=== PATIENT | female | born 1930 | race Caucasian/White ===

== ENCOUNTER 2017-12-12 14:12 | Inpatient (IN) | payer MEDICARE, OTHER ==
[2017-12-12 15:13] LABS: #Lymphocytes 0.4 thou/uL (1.20-3.40); #Monocytes 0.8 thou/uL (0.11-0.59); #Neutrophils 8.7 thou/uL (1.40-6.50); %Basophils 0.3 % (0.0-1.0); %Eosinophils 0.3 % (0.0-10.0); %Lymphocytes 3.6 % (21.0-51.0); %Monocytes 7.6 % (0.0-10.0); %Neutrophils 88.2 % (42.0-75.0); Hemoglobin 12.8 g/dL (12.0-16.0); Mean Corpuscular HGB CONC 31.6 g/dL (32.0-36.0); Mean Corpuscular Hemoglobin 28.9 pg (27.0-31.0); Mean Corpuscular Volume 91.5 fl (81.0-99.0); Mean Platelet Volume 7.1 fL (7.4-10.4); Platelet Count 248 thou/uL (130-400); RBC Distribution Width 12.7 % (11.5-14.5); Red Blood Cell (RBC) Count 4.43 mill/uL (4.20-5.40); White Blood Cell (WBC) Count 9.9 thou/uL (4.8-10.8)
[2017-12-12 15:33] LABS: ALT (SGPT) 85 U/L (8-55); AST (SGOT) 84 U/L (5-34); Albumin 3.8 g/dL (3.4-4.8); Alkaline Phosphatase 606 U/L (40-150); Bilirubin, Direct 6.8 mg/dL (0.1-0.3); Bilirubin, Total 8.6 mg/dL (0.2-1.2)
[2017-12-12 15:35] LABS: ALT (SGPT) 86 U/L (8-55); AST (SGOT) 85 U/L (5-34); Albumin 3.8 g/dL (3.4-4.8); Alkaline Phosphatase 610 U/L (40-150); Anion Gap 13 mmol/L (10-20); BUN (Urea Nitrogen) 17 mg/dL (9.8-20.1); Bilirubin, Total 8.7 mg/dL (0.2-1.2); Calc. Creatinine Clearance 0 mL/min (70-130); Calcium 9.5 mg/dL (7.8-10.44); Carbon Dioxide 23 mmol/L (23-31); Chloride 95 mmol/L (98-107); Estimated GFR-MDRD 69; Globulin 3.2 g/dL (2.4-3.5); Glucose 126 mg/dL (83-110); Potassium 4.3 mmol/L (3.5-5.1); Sodium 127 mmol/L (136-145)
[2017-12-12 15:48] LABS: Lipase 1192 U/L (8-78)
[2017-12-12] MEDS ORDERED: Acetaminophen 500 MG TAB ONE (16:14)
--- NOTE | 2017-12-12 17:40 | ULT ---
RIGHT UPPER QUADRANT ULTRASOUND: History: Right upper quadrant pain. Comparison: None. FINDINGS: The visualized portion of the pancreas is unremarkable. There appears to be intrahepatic biliary dila tation as well as extrahepatic biliary dilatation. The liver measures 14.9 cm in length. Portal vein is patent with antegrade flow. Common bile duct measures 1.3 cm. There is cholelithiasis. There is also some pericholecystic fluid. Gallbladder wall thickness is up to 4 mm. There is a right sided renal calculi. The right kidney measures 9.6 x 4.9 x 4.9 cm. IMPRESSION: 1. Intrahepatic and extrahepatic biliary dilatation of the common bile duct measuring up to 1.3 cm. F urther characterization with ERCP recommended. MRCP may also be beneficial if patient is not a candid ate for ERCP. 2. Abnormally thickened gallbladder wall and some pericholecystic fluid can be seen with cholecystiti s or due to increased back pressure from a distal obstructing process either within the common bile d uct or pancreatic head. 3. Cholelithiasis and gallbladder sludge. 4. Right sided renal calculi, nonobstructed. POS: BELLA
[2017-12-12] MEDS ORDERED: Piperacillin/Tazobactam 4.5 GM in Sodium Chloride 0.9% 100 ML IVPB SCH (18:15)
[2017-12-12 18:39] LABS: Bilirubin Large (Negative); Blood, Urine Negative (Negative); Clarity CLEAR (Clear); Glucose, Urine (Dipstick) Negative (Negative); Leukocyte Small (Negative); Nitrite Negative (Negative); Protein, Urine (Dipstick) Negative (Neg-Trace); Specific Gravity, Urine 1.016 (1.002-1.036)
[2017-12-12 18:40] LABS: Bacteria/HPF None Seen HPF (None Seen); Hyaline Casts/LPF 4-6 HYALINE CAST LPF (0-3 Hyaline); Pathc Cast-AUWi Flag 1.21 (0-2.49); Squamous Epithelial 0-3 HPF (0-3)
[2017-12-12] MEDS ORDERED: Calcium Carbonate 500 MG ChewTAB PO PRN (21:34)
[2017-12-12] MEDS ORDERED: Mag-Al 1200 mg/1200 mg/30 ML UDCUP PO PRN (21:34)
[2017-12-12] MEDS ORDERED: Ondansetron HCl/PF 4 MG/2 ML Vial IVP PRN (21:34)
[2017-12-12] MEDS ORDERED: Promethazine HCl 25 MG/ML VIAL IM PRN (21:34)
[2017-12-12] MEDS ORDERED: hydrALAZINE 20 MG/ML VIAL SLOW IVP PRN (21:34)
[2017-12-12] MEDS ORDERED: Dextrose 50% Abboject 50 ML SYRINGE SLOW IVP PRN (21:34)
[2017-12-12] MEDS ORDERED: Dextrose 5% in Water 1,000 ML IV PRN (21:34)
[2017-12-12 21:42] VITALS: BMI 25.5
[2017-12-12] MEDS ORDERED: HumaLOG 300 UNITS/3 ML VIAL SC PRN (21:53)
--- NOTE | 2017-12-12 21:58 | CON ---
CHIEF COMPLAINT: Jaundice. HISTORY OF PRESENT ILLNESS: This is an 87-year-old female who has real no complaints of pain, nausea , vomiting, and was noticed to be quite jaundiced today at the [facility] and sent over to the [facility] as a diagnosis of painless jaundice. The patient states that she has not felt real well today on further questioning, may be some abdominal discomfort after she ate, has not had this much of an appetite today. She denies known previous history of jaundice, gallstones or pancreatitis, found to have a high bilirubin and evidence of gallstones and dilated common bile duct. PAST MEDICAL HISTORY: Includes hypertension. PAST SURGICAL HISTORY: Hip fracture. MEDICINES TAKEN DAILY: Hypertensive medication. ALLERGIES: No known drug allergies. SOCIAL HISTORY: No smoking, alcohol, or other drugs. REVIEW OF SYSTEMS: Ten system review of systems otherwise negative unless described above. PHYSICAL EXAMINATION: VITAL SIGNS: Her blood pressure is 125/84, her pulse is 75, respirations are 12. She is afebrile an d had 100.4 in the emergency room. HEENT: Sclerae are icteric. Oropharynx clear. NECK: No lymphadenopathy. CHEST: Clear. HEART: Regular rate and rhythm. ABDOMEN: Soft, mildly tender on deep palpation in the epigastric area. No guarding or rebound. EXTREMITIES: No ischemia or edema to extremities. LABORATORY: White cell count is 9, hemoglobin 12, platelet count is 248, no bands. Sodium is 127, p otassium 4.3, creatinine 0.79, bilirubin 8.6. Lipase was 1192. Ultrasound gallstones, dilated commo n bile duct. ASSESSMENT: Likely gallstone pancreatitis. She was told that because this is painless jaundice. Sh alisa could have a tumor in her pancreas, I think this is less likely. PLAN: Admit to hospital. Cover with antibiotics, IV fluid resuscitation. Discussed with Dr. Oh as well. He will see her tomorrow. Depending on what her bilirubin does, will decide the next step in her treatment. She has no signs of cholangitis in the emergency room.
[2017-12-12] MEDS: Sodium Chloride 0.9% 1,000 ML IV SCH (22:22)
[2017-12-13] MEDS: Piperacillin/Tazobactam 3.375 GM in Sodium Chloride 0.9% 100 ML IVPB SCH ×4 (03:17→21:46)
[2017-12-13 04:47] LABS: #Eosinphils 0.1 thou/uL (0.0-0.7); #Lymphocytes 0.7 thou/uL (1.20-3.40); #Monocytes 0.8 thou/uL (0.11-0.59); #Neutrophils 5.9 thou/uL (1.40-6.50); %Basophils 0.2 % (0.0-1.0); %Eosinophils 0.7 % (0.0-10.0); %Lymphocytes 9.5 % (21.0-51.0); %Monocytes 10.3 % (0.0-10.0); %Neutrophils 79.3 % (42.0-75.0); Hemoglobin 10.9 g/dL (12.0-16.0); Mean Corpuscular HGB CONC 31.5 g/dL (32.0-36.0); Mean Corpuscular Hemoglobin 28.7 pg (27.0-31.0); Mean Corpuscular Volume 91.2 fl (81.0-99.0); Mean Platelet Volume 7.4 fL (7.4-10.4); Platelet Count 220 thou/uL (130-400); RBC Distribution Width 12.7 % (11.5-14.5); Red Blood Cell (RBC) Count 3.81 mill/uL (4.20-5.40); White Blood Cell (WBC) Count 7.4 thou/uL (4.8-10.8)
--- NOTE | 2017-12-13 04:48 | HP ---
PRIMARY CARE PHYSICIAN: Dr. Tor Argueta in [place]. PRESENTING COMPLAINT: Drug induced jaundice. HISTORY OF PRESENT ILLNESS: An 87-year-old female with a past medical history of hypertension and dementia who presented to the emergency room with jaundice which she noticed on Tuesday and yesterday she developed poor appetite and muscle aches. She also had a low grade fever with temperature of 100 degrees Fahrenheit, T-max. There was no history of chills, nausea, vomiting or diarrhea. She has not had any pale stools, but reports that her urine has been "very yellow". She also reports abdominal discomfort, but reports no pain. She has no chest pain, shortness of breath, palpitation, PND, orthopnea, lower extremity edema. She decided to come to the hospital due to worsening jaundice. PAST MEDICAL HISTORY: Hypertension, dementia. PAST SURGICAL HISTORY: None. FAMILY HISTORY: Reviewed, noncontributory. SOCIAL HISTORY: Does not drink alcohol, smoke cigarettes or use illicit drugs. ALLERGIES: None. REVIEW OF SYSTEMS: CONSTITUIONAL: Denies chills, fever. HEENT: Negative. CARDIOVASCULAR: Negative. RESPIRATORY: Negative. GI: Denies abdominal pain, nausea, vomiting or diarrhea. MUSCULOSKELETAL: Negative. SKIN: Positive for jaundice. NEUROLOGIC: Negative. PSCHIATIRIC: Negative. PHYSICAL EXAMINATION: VITAL SIGNS: Shows hemodynamically stable on arrival. CONSTITUTIONAL: Not in acute distress, lying comfortably in bed. HEENT: Normocephalic, atraumatic. Not pale icteric. Moist mucosa. RESPIRATORY: Vesicular breath sounds bilaterally. No wheezes or rales. CARDIOVASCULAR: S1 and S2 only. No murmurs, rubs or gallops. MUSCULOSKELETAL: No skeletal abnormalities. SKIN: Marked jaundice. PSYCHIATRIC: Normal mood and affect. RADIOLOGY: Abdominal ultrasound; cholecystitis. There are intra and extrahepatic dilatation common bile duct and possible thickened gallbladder wall with possible pericholecystic fluid. LABORATORY: Significant labs include bilirubin of 8.7, AST/ALT of 85 and 86 with alkaline phosphatase of 610, lipase was over 1000. Urine showed urobilinogen. ASSESSMENT AND PLAN: 1. Cholecystitis/Gall Stone Pancreatitis. The patient presents with marked jaundice. Labs showed obstructive pattern and abdominal ultrasound confirms cholecystitis with possible intra and extrahepatic dilatation. Surgery has been consulted and recommend consulting GI for ERCP. The patient will be made n.p.o., hydrated and placed on prophylactic antibiotic coverage. We will follow up blood cultures. 2. Hypertension. Blood pressure is currently at goal. At home she takes amlodipine 10 mg as well as losartan/hydrochlorothiazide. We will gradually reintroduce her home medications. 3. Hypothyroidism. We will obtain TSH and restart of levothyroxine once patient can take orally. 4. Dementia. She is alert and oriented x2. We will ensure delirium precautions. MTDD
[2017-12-13 05:11] LABS: ALT (SGPT) 60 U/L (8-55); AST (SGOT) 65 U/L (5-34); Albumin 3.1 g/dL (3.4-4.8); Alkaline Phosphatase 467 U/L (40-150); Anion Gap 12 mmol/L (10-20); BUN (Urea Nitrogen) 11 mg/dL (9.8-20.1); Bilirubin, Total 8.4 mg/dL (0.2-1.2); Calc. Creatinine Clearance 68 mL/min (70-130); Calcium 8.7 mg/dL (7.8-10.44); Carbon Dioxide 24 mmol/L (23-31); Chloride 102 mmol/L (98-107); Estimated GFR-MDRD 82; Globulin 2.5 g/dL (2.4-3.5); Glucose 101 mg/dL (83-110); Lipase 722 U/L (8-78); Potassium 3.6 mmol/L (3.5-5.1); Protein, Total 5.6 g/dL (6.0-8.3); Sodium 134 mmol/L (136-145)
[2017-12-13] MEDS: Sodium Chloride 0.9% 1,000 ML IV SCH ×2 (05:38→12:47)
[2017-12-13] MEDS: Pantoprazole 40 MG VIAL IVP SCH (08:42)
--- NOTE | 2017-12-13 08:42 | PDOC.GSPN ---
Surgery Progress Note: Subj - Subjective Narrative: Still has no complaints, voiding regularly Surgery Progress Note: Obj - Vital signs Vital signs: Vital Signs - Most Recent Temp Pulse Resp BP Pulse Ox 98.3 F 66 16 117/58 L 97 12/13/17 03:39 12/13/17 03:39 12/13/17 03:39 12/13/17 03:39 12/13/17 03:39 - Physical Exam General: no distress Cardiovascular: regular rate and rhythm Respiratory: clear to auscultation Abdomen: soft, non tender, nondistended Surgery Progress Note: Results - Labs Result Diagrams: 12/13/17 03:43 12/13/17 03:43 Lab results: Laboratory Results - last 24 hr 12/12/17 12/13/17 12/13/17 23:41 03:43 03:43 WBC 7.4 RBC 3.81 L Hgb 10.9 L Hct 34.7 L MCV 91.2 MCH 28.7 MCHC 31.5 L RDW 12.7 Plt Count 220 MPV 7.4 Neutrophils % 79.3 H Lymphocytes % 9.5 L Monocytes % 10.3 H Eosinophils % 0.7 Basophils % 0.2 Neutrophils # 5.9 Lymphocytes # 0.7 L Monocytes # 0.8 H Eosinophils # 0.1 Basophils # 0.0 Sodium 134 L Potassium 3.6 Chloride 102 Carbon Dioxide 24 Anion Gap 12 BUN 11 Creatinine 0.68 Estimated GFR (MDRD) 82 Glucose 101 POC Glucose 99 Calcium 8.7 Total Bilirubin 8.4 H AST 65 H ALT 60 H Alkaline Phosphatase 467 H Serum Total Protein 5.6 L Albumin 3.1 L Globulin 2.5 Albumin/Globulin Ratio 1.2 Lipase 722 H 12/13/17 05:16 WBC RBC Hgb Hct MCV MCH MCHC RDW Plt Count MPV Neutrophils % Lymphocytes % Monocytes % Eosinophils % Basophils % Neutrophils # Lymphocytes # Monocytes # Eosinophils # Basophils # Sodium Potassium Chloride Carbon Dioxide Anion Gap BUN Creatinine Estimated GFR (MDRD) Glucose POC Glucose 98 Calcium Total Bilirubin AST ALT Alkaline Phosphatase Serum Total Protein Albumin Globulin Albumin/Globulin Ratio Lipase Surgery Progress Note: A/P - Problem (1) Gallstone pancreatitis Current Visit: Yes Code(s): K85.10 - BILIARY ACUTE PANCREATITIS WITHOUT NECROSIS OR INFECTION Status: Acute Assessment and Plan: Lipase down today. Tbili still markedly elevated. She still has minimal symptoms. Hemodynamically stable. Continue supportive care. Lap haleigh before discharge (2) Choledocholithiasis Current Visit: Yes Code(s): K80.50 - CALCULUS OF BILE DUCT W/O CHOLANGITIS OR CHOLECYST W/O OBST Status: Acute
[2017-12-13] MEDS ORDERED: FLU VACC TS2017-18 (>65YR) 0.5 ML SYRINGE IM ONE (09:00)
--- NOTE | 2017-12-13 11:22 | PDOC.PN ---
- Subjective Encounter Start Date: 12/13/17 Encounter Start Time: 08:30 Subjective: no abd pain or itching -: is awake, has no complaints -: responds well to questions, son at bedside - Objective Resuscitation Status: Resuscitation Status DNR:Do Not Resuscitate MAR Reviewed: Yes Vital Signs & Weight: Vital Signs (12 hours) Temp Pulse Resp BP Pulse Ox 12/13/17 08:15 98.4 F 62 14 134/66 97 12/13/17 03:39 98.3 F 66 16 117/58 L 97 12/13/17 01:13 99.0 F 61 16 131/72 98 12/13/17 00:54 95 Weight Weight 163 lb 2.273 oz Result Diagrams: 12/13/17 03:43 12/13/17 03:43 Additional Labs: Accuchecks 12/13/17 12/12/17 05:16 23:41 POC Glucose 98 99 Phys Exam - Physical Examination HEENT: PERRLA icterus+++ Neck: no JVD, supple Respiratory: no wheezing, no rales Cardiovascular: RRR, no significant murmur Gastrointestinal: soft, non-tender, no distention, positive bowel sounds Musculoskeletal: no edema, pulses present Neurological: non-focal, moves all 4 limbs Psychiatric: A&O x 3 Dx/Plan (1) Gallstone pancreatitis Code(s): K85.10 - BILIARY ACUTE PANCREATITIS WITHOUT NECROSIS OR INFECTION Status: Acute (2) Choledocholithiasis Code(s): K80.50 - CALCULUS OF BILE DUCT W/O CHOLANGITIS OR CHOLECYST W/O OBST Status: Acute (3) HTN (hypertension) Code(s): I10 - ESSENTIAL (PRIMARY) HYPERTENSION Status: Chronic Qualifiers: Hypertension type: essential hypertension Qualified Code(s): I10 - Essential (primary) hypertension (4) Hypothyroidism Code(s): E03.9 - HYPOTHYROIDISM, UNSPECIFIED Status: Chronic Qualifiers: Hypothyroidism type: unspecified Qualified Code(s): E03.9 - Hypothyroidism , unspecified (5) Dementia Code(s): F03.90 - UNSPECIFIED DEMENTIA WITHOUT BEHAVIORAL DISTURBANCE Status: Chronic Qualifiers: Dementia type: unspecified type Dementia behavioral disturbance: without behavioral disturbance Qualified Code(s): F03.90 - Unspecified dementia without behavioral disturbance (6) Chronic anemia Code(s): D64.9 - ANEMIA, UNSPECIFIED Status: Chronic - Plan plan is for ercp per Dr.Parrent rafi ricardo, await GI opinion -: suggest CT abd to see for pancreatic lesions if any -: has t.bili of 8.4, lipase is trending down to 722 this am -: is npo, iv hydration -: on empiric zosyn * . Review of Systems - Medications/Allergies Allergies/Adverse Reactions: Allergies Allergy/AdvReac Type Severity Reaction Status Date / Time No Known Drug Allergies Allergy Verified 10/09/16 18:04 Medications: Current Medications Al Hydroxide/Mg Hydroxide (Maalox) 15 ml PO Q6H PRN PRN Reason: Dyspepsia Albuterol/Ipratropium (Duoneb) 3 ml NEB Q4H PRN PRN Reason: Wheezing Calcium Carbonate (Tums) 1,000 mg PO Q4H PRN PRN Reason: Dyspepsia Dextrose/Water (Dextrose 50%) 25 gm SLOW IVP PRN PRN PRN Reason: Hypoglycemia Glucagon (Glucagon) 1 mg IM PRN PRN PRN Reason: Hypoglycemia Hydralazine HCl (Apresoline) 10 mg SLOW IVP Q4H PRN PRN Reason: SBP > 170 or DBP > 100 Dextrose/Water (D5w) 1,000 mls @ 0 mls/hr IV .Q0M PRN; As Directed PRN Reason: Hypoglycemia Sodium Chloride (Normal Saline 0.9%) 1,000 mls @ 120 mls/hr IV .Q8H20M [facility] Last Admin: 12/13/17 05:38 Dose: 1,000 mls Piperacillin Sod/Tazobactam (Sod 3.375 gm/ Sodium Chloride) 100 mls @ 200 mls/ hr IVPB 0300,0900,1500,2100 [facility] Last Admin: 12/13/17 08:41 Dose: 100 mls Insulin Human Lispro (Humalog) 0 units SC .MILD SLIDING SCALE PRN PRN Reason: Mild Correctional Scale Morphine Sulfate (Morphine) 2 mg SLOW IVP Q2H PRN PRN Reason: Mild Pain (1-3) Morphine Sulfate (Morphine) 4 mg SLOW IVP Q2H PRN PRN Reason: Moderate Pain (4-6) Ondansetron HCl (Zofran) 4 mg IVP Q6H PRN PRN Reason: Nausea/Vomiting Pantoprazole Sodium (Protonix) 40 mg IVP DAILY [facility] Last Admin: 12/13/17 08:42 Dose: 40 mg Promethazine HCl (Phenergan) 12.5 mg IM Q4H PRN PRN Reason: Nausea/Vomiting Sodium Chloride (Flush - Normal Saline) 10 ml IVF PRN PRN PRN Reason: Saline Flush
--- NOTE | 2017-12-13 11:41 | PRG ---
DATE OF SERVICE: 12/13/2017 HISTORY: Ms. Mcdowell is without complaints. T-max was 99 last night, T-current 98.4. Denies rigor s or chills. PHYSICAL EXAMINATION: VITAL SIGNS: Blood pressure 134/66, pulse 62, room O2 sat is 97%. GENERAL: She remains icteric. LUNGS: Clear. HEART: Regular rate and rhythm. ABDOMEN: Soft, nontender. There is no rebound or guarding. EXTREMITIES: No clubbing, cyanosis or edema. LABORATORY STUDIES: White count 7.4, hemoglobin 10.9, platelet count 220. Electrolytes are normal. Bilirubin is still elevated at 8.4, AST and ALT came down a bit 65 and 60, alkaline phosphatase was 467 and lower, lipase is down from 1192 to 722. ASSESSMENT: This seems to be biliary pancreatitis, though she did not have much pain with it. An at ypical presentation for malignancy, pancreatic malignancy or ampullary malignancy is a concern as wel l. She did have some pericholecystic fluid and some thickened gallbladder wall so I suspect she had some acute cholecystitis. As she continues to improve with conservative management and still has milvia e degree of pancreatitis I recommend that we continue on clear liquids, IV fluids and antibiotics. R epeat her labs tomorrow. If we are seeing the lipase continue down further, then we would proceed wi th ERCP at that time if it does not appear that her liver enzymes are spontaneously dropping, which i t appears they will not. I discussed these issues with the issues with the patient and family, they agree with these plans. We will proceed along those lines.
--- NOTE | 2017-12-13 12:52 | CON ---
DATE OF CONSULTATION: 12/12/2017 REASON FOR CONSULTATION: Jaundice, pancreatitis, and gallstones. HISTORY OF PRESENT ILLNESS: Ms. Mcdowell is a pleasant 87-year-old female who was admitted to the [facility] for jaundice and pancreatitis. Her son reports that she stays at assisted living and there th e nurse did notice since last Tuesday, she had been jaundiced and some dark urine. Today, she had some tremors noticed by the nurse and they went ahead and sent her to the hospital. There has been n o recorded fever and she did not have sweats or chills that she can recall. He was not there at that time. She denies any overt pain. He states he knew something was wrong because the last couple of days, she just really does not want to eat and she is usually a very good eater. Presently, she justino es any pain. She states she has been voiding here. She denies any nausea or vomiting. She denies a ny back pain. There may be a little bit of abdominal discomfort the last time she ate, but not much. She denies any pain really, but just does not have an appetite. She has not had any similar episod es of this. She has had pancreatitis in the past. She does not drink much alcohol at all, if any. PAST MEDICAL HISTORY: Hypertension, the last year she had pelvic fracture. MEDICATIONS AT HOME: Tramadol, valsartan, levothyroxine, hydrochlorothiazide, Cymbalta, calcium, asp irin, amlodipine, acetaminophen. MEDICATIONS HERE: DuoNeb, Tums, hydralazine p.r.n., flu vaccine, insulin sliding scale, morphine p.r .n., Zofran p.r.n., Protonix 40 mg daily, Zosyn q.8, and normal saline at 120 an hour. ALLERGIES: None known. REVIEW OF SYSTEMS: No history of dysphagia, odynophagia, melena, hematochezia or hematemesis. She h as had no recent weight loss. PAST SURGICAL HISTORY: None. SOCIAL HISTORY: Negative for alcohol, drugs, tobacco. PHYSICAL EXAMINATION: GENERAL: On presentation, blood pressure 131/61, pulse 84, respirations 16, temperature 100.6. GENERAL: Presently, she is mildly icteric. LUNGS: Clear. HEART: Regular rate and rhythm without clicks or murmurs. ABDOMEN: Soft. There is no real tenderness to deep palpation in epigastric right upper quadrant. S he says it is because I am just pushing too hard. She has no rebound or guarding. EMERGENCY ROOM: She received Zosyn and 1 liter of saline. IMAGING: She had an ultrasound that showed gallstones with some abnormal gallbladder wall thickening , 1.3 cm common bile duct, mild pericholecystic fluid, cholelithiasis and gallbladder sludge. LABORATORY DATA: White count 9.9, hemoglobin 12.8, baseline is 11.9 to 13 over the past several dorothy hs, platelet count 248. Sodium 127, potassium 4.3, chloride 95, BUN and creatinine 17 and 0.79, gluc ose 126, bilirubin is 8.7, it was 2.6 on 12/07/2017; on 11/29/2017 it was 1. AST and ALT were 84 and 85, alkaline phosphatase 606. Lipase was 1992. Liver function tests were normal last May. ASSESSMENT: Likely mild biliary pancreatitis, possibly some mild cholecystitis. She has no overt fe brittaney, leukocytosis, confusion, chills, or hypertension to suggest cholangitis. She has been started o n broad-spectrum antibiotis. RECOMMENDATIONS: 1. IV fluids. 2. We would monitor LFTs and lipase. Hopefully, her lipase will start dropping tomorrow. If her li brittaney function tests do not improve, she will likely need ERCP. She really does not have much pain. Differential diagnosis would include neoplastic obstructive process such as ampullary tumor or pancre atic malignancy; however, with a fairly abrupt onset just in the past week or so and no weight loss t his is less likely. 3. Continue IV hydration. She has no overt signs of renal insufficiency and did not appear to be hy perconcentrated on hemoglobin or other labs bolus received in the ER is adequate and we will re check the labs in the morning. Case has been discussed with Dr. Sebastian earlier this evening.
[2017-12-13] MEDS: D5 1/2 NS w/20 mEq KCL 1,000 ML IV SCH (18:06)
[2017-12-13] MEDS ORDERED: Melatonin 3 MG TAB PO SCH (23:00)
[2017-12-14] MEDS: Sodium Chloride 0.9% 1,000 ML IV SCH ×3 (02:46→15:56)
[2017-12-14] MEDS: D5 1/2 NS w/20 mEq KCL 1,000 ML IV SCH ×3 (03:36→16:54)
[2017-12-14] MEDS: Piperacillin/Tazobactam 3.375 GM in Sodium Chloride 0.9% 100 ML IVPB SCH ×5 (03:36→20:34)
[2017-12-14 05:05] LABS: #Eosinphils 0.1 thou/uL (0.0-0.7); #Lymphocytes 0.4 thou/uL (1.20-3.40); #Monocytes 0.4 thou/uL (0.11-0.59); #Neutrophils 2.6 thou/uL (1.40-6.50); %Basophils 0.5 % (0.0-1.0); %Eosinophils 2.1 % (0.0-10.0); %Lymphocytes 12.6 % (21.0-51.0); %Monocytes 10.4 % (0.0-10.0); %Neutrophils 74.5 % (42.0-75.0); Hemoglobin 10.9 g/dL (12.0-16.0); Mean Corpuscular HGB CONC 32.1 g/dL (32.0-36.0); Mean Corpuscular Hemoglobin 29.4 pg (27.0-31.0); Mean Corpuscular Volume 91.5 fl (81.0-99.0); Mean Platelet Volume 6.9 fL (7.4-10.4); Platelet Count 217 thou/uL (130-400); RBC Distribution Width 12.6 % (11.5-14.5); Red Blood Cell (RBC) Count 3.71 mill/uL (4.20-5.40); White Blood Cell (WBC) Count 3.5 thou/uL (4.8-10.8)
[2017-12-14 05:09] LABS: INR-International Normal Ratio 1.1; Prothrombin Time 14.8 SEC (12.0-14.7)
[2017-12-14 05:12] LABS: ALT (SGPT) 51 U/L (8-55); AST (SGOT) 52 U/L (5-34); Alkaline Phosphatase 416 U/L (40-150); Anion Gap 11 mmol/L (10-20); BUN (Urea Nitrogen) 6 mg/dL (9.8-20.1); Bilirubin, Total 5.2 mg/dL (0.2-1.2); Calc. Creatinine Clearance 76 mL/min (70-130); Calcium 8.4 mg/dL (7.8-10.44); Carbon Dioxide 22 mmol/L (23-31); Chloride 103 mmol/L (98-107); Estimated GFR-MDRD Greater than 90; Globulin 2.7 g/dL (2.4-3.5); Glucose 124 mg/dL (83-110); Lipase 98 U/L (8-78); Potassium 3.7 mmol/L (3.5-5.1); Protein, Total 5.7 g/dL (6.0-8.3); Sodium 132 mmol/L (136-145)
--- NOTE | 2017-12-14 08:49 | PDOC.GSPN ---
Surgery Progress Note: Subj - Subjective Patient reports: no new complaints Surgery Progress Note: Obj - Vital signs Vital signs: Vital Signs - Most Recent Temp Pulse Resp BP Pulse Ox 98.4 F 70 14 116/68 96 12/14/17 07:20 12/14/17 07:20 12/14/17 07:20 12/14/17 07:20 12/14/17 07:20 - Physical Exam General: no distress Cardiovascular: regular rate and rhythm Respiratory: clear to auscultation Abdomen: soft, non tender Surgery Progress Note: Results - Labs Result Diagrams: 12/14/17 04:30 12/14/17 04:30 Lab results: Laboratory Results - last 24 hr 12/13/17 12/14/17 12/14/17 23:26 04:30 04:30 WBC RBC Hgb Hct MCV MCH MCHC RDW Plt Count MPV Neutrophils % Lymphocytes % Monocytes % Eosinophils % Basophils % Neutrophils # Lymphocytes # Monocytes # Eosinophils # Basophils # PT 14.8 H INR 1.1 Sodium 132 L Potassium 3.7 Chloride 103 Carbon Dioxide 22 L Anion Gap 11 BUN 6 L Creatinine 0.61 Estimated GFR (MDRD) Greater than 90 Glucose 124 H POC Glucose 111 H Calcium 8.4 Total Bilirubin 5.2 H AST 52 H ALT 51 Alkaline Phosphatase 416 H Serum Total Protein 5.7 L Albumin 3.0 L Globulin 2.7 Albumin/Globulin Ratio 1.1 L Lipase 98 H 12/14/17 12/14/17 04:30 05:55 WBC 3.5 L RBC 3.71 L Hgb 10.9 L Hct 34.0 L MCV 91.5 MCH 29.4 MCHC 32.1 RDW 12.6 Plt Count 217 MPV 6.9 L Neutrophils % 74.5 Lymphocytes % 12.6 L Monocytes % 10.4 H Eosinophils % 2.1 Basophils % 0.5 Neutrophils # 2.6 Lymphocytes # 0.4 L Monocytes # 0.4 Eosinophils # 0.1 Basophils # 0.0 PT INR Sodium Potassium Chloride Carbon Dioxide Anion Gap BUN Creatinine Estimated GFR (MDRD) Glucose POC Glucose 130 H Calcium Total Bilirubin AST ALT Alkaline Phosphatase Serum Total Protein Albumin Globulin Albumin/Globulin Ratio Lipase Surgery Progress Note: A/P - Problem (1) Gallstone pancreatitis Current Visit: Yes Code(s): K85.10 - BILIARY ACUTE PANCREATITIS WITHOUT NECROSIS OR INFECTION Status: Acute Assessment and Plan: ERCP today, lap haleigh tomorrow (2) Choledocholithiasis Current Visit: Yes Code(s): K80.50 - CALCULUS OF BILE DUCT W/O CHOLANGITIS OR CHOLECYST W/O OBST Status: Acute
[2017-12-14] MEDS: Pantoprazole 40 MG VIAL IVP SCH (09:00)
--- NOTE | 2017-12-14 11:13 | PDOC.PN ---
- Subjective Encounter Start Date: 12/14/17 Encounter Start Time: 10:20 Subjective: no abd pain or itching -: no new complaints, is comfortable on bed -: family at bedside - Objective Resuscitation Status: Resuscitation Status DNR:Do Not Resuscitate MAR Reviewed: Yes Vital Signs & Weight: Vital Signs (12 hours) Temp Pulse Resp BP Pulse Ox 12/14/17 07:45 98.4 F 70 14 96 12/14/17 07:20 98.4 F 70 14 116/68 96 12/14/17 04:00 98.3 F 71 19 145/80 H 98 12/14/17 00:00 98.6 F 74 19 130/60 96 Weight Weight 163 lb 2.273 oz I&O: 12/13/17 12/14/17 12/15/17 06:59 06:59 06:59 Intake Total 2880 Balance 2880 Result Diagrams: 12/14/17 04:30 12/14/17 04:30 Additional Labs: Accuchecks 12/14/17 12/13/17 12/13/17 05:55 23:26 17:02 POC Glucose 130 H 111 H 79 12/13/17 10:48 POC Glucose 89 Phys Exam - Physical Examination HEENT: PERRLA icterus++ Neck: no nodes, no JVD Respiratory: no wheezing, no rales Cardiovascular: RRR, no significant murmur Gastrointestinal: soft, non-tender, no distention, positive bowel sounds Musculoskeletal: no edema, pulses present Neurological: non-focal, moves all 4 limbs Psychiatric: A&O x 3 Dx/Plan (1) Gallstone pancreatitis Code(s): K85.10 - BILIARY ACUTE PANCREATITIS WITHOUT NECROSIS OR INFECTION Status: Acute (2) Choledocholithiasis Code(s): K80.50 - CALCULUS OF BILE DUCT W/O CHOLANGITIS OR CHOLECYST W/O OBST Status: Acute (3) HTN (hypertension) Code(s): I10 - ESSENTIAL (PRIMARY) HYPERTENSION Status: Chronic Qualifiers: Hypertension type: essential hypertension Qualified Code(s): I10 - Essential (primary) hypertension (4) Hypothyroidism Code(s): E03.9 - HYPOTHYROIDISM, UNSPECIFIED Status: Chronic Qualifiers: Hypothyroidism type: unspecified Qualified Code(s): E03.9 - Hypothyroidism , unspecified (5) Dementia Code(s): F03.90 - UNSPECIFIED DEMENTIA WITHOUT BEHAVIORAL DISTURBANCE Status: Chronic Qualifiers: Dementia type: unspecified type Dementia behavioral disturbance: without behavioral disturbance Qualified Code(s): F03.90 - Unspecified dementia without behavioral disturbance (6) Chronic anemia Code(s): D64.9 - ANEMIA, UNSPECIFIED Status: Chronic - Plan for ercp today -: lipase is 98, t.bili has come down to 5.2 -: pt is asymptomatic -: gave updates to family at bedside -: oob to chair and mobilize as tolerated * . Review of Systems - Medications/Allergies Allergies/Adverse Reactions: Allergies Allergy/AdvReac Type Severity Reaction Status Date / Time No Known Drug Allergies Allergy Verified 10/09/16 18:04 Medications: Current Medications Al Hydroxide/Mg Hydroxide (Maalox) 15 ml PO Q6H PRN PRN Reason: Dyspepsia Albuterol/Ipratropium (Duoneb) 3 ml NEB Q4H PRN PRN Reason: Wheezing Calcium Carbonate (Tums) 1,000 mg PO Q4H PRN PRN Reason: Dyspepsia Dextrose/Water (Dextrose 50%) 25 gm SLOW IVP PRN PRN PRN Reason: Hypoglycemia Glucagon (Glucagon) 1 mg IM PRN PRN PRN Reason: Hypoglycemia Hydralazine HCl (Apresoline) 10 mg SLOW IVP Q4H PRN PRN Reason: SBP > 170 or DBP > 100 Dextrose/Water (D5w) 1,000 mls @ 0 mls/hr IV .Q0M PRN; As Directed PRN Reason: Hypoglycemia Sodium Chloride (Normal Saline 0.9%) 1,000 mls @ 120 mls/hr IV .Q8H20M [facility] Last Admin: 12/14/17 07:13 Dose: Not Given Piperacillin Sod/Tazobactam (Sod 3.375 gm/ Sodium Chloride) 100 mls @ 200 mls/ hr IVPB 0300,0900,1500,2100 [facility] Last Admin: 12/14/17 09:01 Dose: 100 mls Potassium Chloride/Dextrose/Sod Cl (D5 1/2 Ns W/20 Meq Kcl) 1,000 mls @ 120 mls /hr IV .Q8H20M [facility] Last Admin: 12/14/17 09:57 Dose: Not Given Insulin Human Lispro (Humalog) 0 units SC .MILD SLIDING SCALE PRN PRN Reason: Mild Correctional Scale Morphine Sulfate (Morphine) 2 mg SLOW IVP Q2H PRN PRN Reason: Mild Pain (1-3) Morphine Sulfate (Morphine) 4 mg SLOW IVP Q2H PRN PRN Reason: Moderate Pain (4-6) Ondansetron HCl (Zofran) 4 mg IVP Q6H PRN PRN Reason: Nausea/Vomiting Pantoprazole Sodium (Protonix) 40 mg IVP DAILY [facility] Last Admin: 12/14/17 09:00 Dose: 40 mg Promethazine HCl (Phenergan) 12.5 mg IM Q4H PRN PRN Reason: Nausea/Vomiting Sodium Chloride (Flush - Normal Saline) 10 ml IVF PRN PRN PRN Reason: Saline Flush Last Admin: 12/14/17 09:01 Dose: 10 ml
[2017-12-14] MEDS ORDERED: Indomethacin 50 MG SUPP ONE (14:44)
[2017-12-14] MEDS ORDERED: Iothalamate Meglumine 60% 50 ML VIAL FS ONE (14:44)
[2017-12-14] MEDS ORDERED: Fentanyl 100 MCG/2 ML VIAL ONE (14:48)
--- NOTE | 2017-12-14 16:10 | RAD ---
ERCP 12/14/17 HISTORY: Biliary dilatation. COMPARISON: Ultrasound 12/12/17. FINDINGS: There is both intrahepatic and extrahepatic biliary dilatation. No definite large stones are apprecia pee. IMPRESSION: Fluoroscopic images for ERCP. POS: [facility]
[2017-12-14] MEDS ORDERED: Lidocaine 1% PF 5 ML VIAL ONE (16:28)
[2017-12-14] MEDS ORDERED: Succinylcholine Chloride 20 MG/ML 10 ml SYRINGE FS ONE (16:28)
[2017-12-14] MEDS ORDERED: Dexamethasone 20 MG/5 ML VIAL ONE (16:28)
[2017-12-14] MEDS ORDERED: Ondansetron HCl/PF 4 MG/2 ML Vial ONE (16:28)
[2017-12-14] MEDS ORDERED: Propofol 200 MG/20 ML VIAL ONE (16:28)
[2017-12-14] MEDS ORDERED: ePHEDrine/0.9% NaCl/PF SYRINGE 50 mg/10 ml ONE (16:28)
--- NOTE | 2017-12-14 18:26 | OP ---
PROCEDURE PERFORMED: Endoscopic retrograde cholangiopancreatography. [employer] COUNSELOR SURGEON: Masoud Oh M.D. PRIMARY SURGEION: Garland Morris M.D. PREPROCEDURE DIAGNOSES: 1. Cholelithiasis. 2. Pancreatitis, resolved. 3. Suspected cholecystitis on admission with intra and extrahepatic bile duct dilatation, gallbladde r wall thickening and pericholecystic fluid. POSTPROCEDURE DIAGNOSES: 1. A 1 cm bile duct. 2. Possible suprapapillary stenosis. 3. Normal intrahepatic ducts. 4. No overt filling defect, but after sphincterotomy was performed, a balloon was pulled through and stone debris were noted in the balloon. 5. At the conclusion of the procedure, occlusion cholangiogram was negative with no further filling defects and good spontaneous drainage of contrast documented both endoscopically and radiographically . 6. No bleeding. 7. There was no injection of the pancreatic duct. ANESTHESIA: General endotracheal anesthesia. ANTIBIOTICS: The patient is on Zosyn. PROCEDURE IN DETAIL: After the patient was informed of the risks, benefits, and possible complicatio ns of endoscopy including perforation, bleeding, reactions to medication and aspiration and pancreati tis, informed consent was obtained. The patient was brought to the endoscopy suite where she was int ubated and placed in a prone position. A Seamer film was obtained and then a side-viewing duodenoscop e was carefully advanced through the bite block into the esophagus, stomach, second and third portion of duodenum and the ampulla was brought into view. Free cannulation was obtained and with assistanc e of guidewire, deep cannulation was obtained. Cholangiogram revealed prominent common bile duct, bu t the intrahepatic ducts appeared normal. The common bile duct was at most 1 cm in size. The pancre atic duct was not investigated. Due to the concern for possible choledocholithiasis based on the sto ruben and the pattern of liver enzymes, a sphincterotomy was performed. The ampulla was quite protuber ant. There was fairly large periampullary diverticula. After sphincterotomy was performed, the duct was then swept with a 12 mm balloon ultimately and the duct was a little bigger than this, so a 15 m m balloon was used in the lower portions and still no large stones came through. Occlusion cholangio gram after this was negative. The scope was removed. The patient tolerated the procedure well and b rought to recovery room in stable condition. The patient also did receive Indocin suppositories for post-endoscopic retrograde cholangiopancreatog cali pancreatitis and has been receiving IV fluids copiously over the past 2 days.
[2017-12-15] MEDS: Sodium Chloride 0.9% 1,000 ML IV SCH ×3 (03:03→21:07)
[2017-12-15] MEDS: D5 1/2 NS w/20 mEq KCL 1,000 ML IV SCH (03:04)
[2017-12-15] MEDS: Piperacillin/Tazobactam 3.375 GM in Sodium Chloride 0.9% 100 ML IVPB SCH ×2 (03:04→10:59)
[2017-12-15 05:46] LABS: #Lymphocytes 0.6 thou/uL (1.20-3.40); #Monocytes 0.1 thou/uL (0.11-0.59); #Neutrophils 2.3 thou/uL (1.40-6.50); %Basophils 0.3 % (0.0-1.0); %Eosinophils 0.1 % (0.0-10.0); %Lymphocytes 18.8 % (21.0-51.0); %Neutrophils 77.9 % (42.0-75.0); Hemoglobin 11.2 g/dL (12.0-16.0); Mean Corpuscular HGB CONC 32.6 g/dL (32.0-36.0); Mean Corpuscular Hemoglobin 29.5 pg (27.0-31.0); Mean Corpuscular Volume 90.5 fl (81.0-99.0); Mean Platelet Volume 6.6 fL (7.4-10.4); Platelet Count 252 thou/uL (130-400); RBC Distribution Width 12.4 % (11.5-14.5)
[2017-12-15 06:20] LABS: ALT (SGPT) 49 U/L (8-55); AST (SGOT) 43 U/L (5-34); Albumin 3.3 g/dL (3.4-4.8); Alkaline Phosphatase 417 U/L (40-150); Anion Gap 12 mmol/L (10-20); BUN (Urea Nitrogen) 6 mg/dL (9.8-20.1); Bilirubin, Total 3.2 mg/dL (0.2-1.2); Calc. Creatinine Clearance 63 mL/min (70-130); Calcium 8.7 mg/dL (7.8-10.44); Carbon Dioxide 24 mmol/L (23-31); Chloride 104 mmol/L (98-107); Estimated GFR-MDRD 74; Globulin 2.9 g/dL (2.4-3.5); Glucose 229 mg/dL (83-110); Lipase 21 U/L (8-78); Potassium 3.8 mmol/L (3.5-5.1); Protein, Total 6.2 g/dL (6.0-8.3); Sodium 136 mmol/L (136-145)
[2017-12-15] MEDS ORDERED: Glycopyrrolate 0.2 MG/ML 5 ML SYRINGE ONE (07:40)
[2017-12-15] MEDS ORDERED: Propofol 200 MG/20 ML VIAL ONE (07:40)
[2017-12-15] MEDS ORDERED: Lidocaine 1% PF 5 ML VIAL ONE ×2 (07:40)
[2017-12-15] MEDS ORDERED: Ondansetron HCl/PF 4 MG/2 ML Vial ONE (07:40)
[2017-12-15] MEDS ORDERED: Ketorolac Tromethamine 30 MG/ML VIAL ONE (07:40)
[2017-12-15] MEDS ORDERED: ePHEDrine/0.9% NaCl/PF SYRINGE 50 mg/10 ml ONE (07:40)
[2017-12-15] MEDS ORDERED: Bupivacaine HCl 0.5%/Epinephrine 1:200,000/PF 30 ml Vial ONE (08:29)
[2017-12-15] MEDS ORDERED: HYDROmorphone 0.5 MG/0.5 ML SYRINGE ONE (08:38)
[2017-12-15] MEDS ORDERED: Ondansetron HCl/PF 4 MG/2 ML Vial IVP PRN ×2 (09:56→10:01)
[2017-12-15] MEDS ORDERED: Dextrose 50% Abboject 50 ML SYRINGE SLOW IVP PRN (09:56)
[2017-12-15] MEDS ORDERED: Dextrose 5% in Water 1,000 ML IV PRN (09:56)
[2017-12-15] MEDS ORDERED: Mag-Al 1200 mg/1200 mg/30 ML UDCUP PO PRN (09:56)
[2017-12-15] MEDS ORDERED: Calcium Carbonate 500 MG ChewTAB PO PRN (09:56)
[2017-12-15] MEDS ORDERED: Acetaminophen 325 MG TAB PO PRN (09:56)
[2017-12-15] MEDS ORDERED: HumaLOG 300 UNITS/3 ML VIAL SC PRN (09:56)
[2017-12-15] MEDS ORDERED: hydrALAZINE 20 MG/ML VIAL SLOW IVP PRN (09:56)
[2017-12-15] MEDS ORDERED: HYDROcodone/Acetaminophen 5/325 mg Tablet PO PRN (09:56)
[2017-12-15] MEDS ORDERED: Promethazine HCl 25 MG/ML VIAL IM PRN ×2 (09:56→10:01)
[2017-12-15] MEDS ORDERED: Meperidine HCl/PF 25 MG/ML VIAL SLOW IVP PRN (10:01)
[2017-12-15] MEDS ORDERED: Morphine Sulfate 2 MG/ML SYRINGE SLOW IVP PRN (10:01)
[2017-12-15] MEDS ORDERED: HYDROmorphone 2 MG/ML VIAL SLOW IVP PRN (10:01)
[2017-12-15] MEDS ORDERED: Promethazine HCl 25 MG/ML VIAL SLOW IVP PRN (10:01)
--- NOTE | 2017-12-15 10:07 | OP ---
PREOPERATIVE DIAGNOSIS: Gallstone pancreatitis. POSTOPERATIVE DIAGNOSIS: Gallstone pancreatitis. PROCEDURE: Laparoscopic cholecystectomy. SURGEON: Wei Sebastian M.D. ANESTHESIA: General. ESTIMATED BLOOD LOSS: Minimal. COMPLICATIONS: None. SPECIMEN: Gallbladder. FINDINGS: Chronic cholecystitis. PROCEDURE: Laparoscopic cholecystectomy. PROCEDURE IN DETAIL: The patient was taken to the Operating Room and laid supine on the Operating Marycarmen m table. After general anesthetic was obtained, the abdomen was prepped and draped in a sterile fashi on. A curved incision was made below the umbilicus. Cautery was used to dissect down to the umbilical fascia. Umbilical fascia was incised and held up using a Juan. The abdominal cavity was entered us ing a Claribel clamp. Holding stitch of Vicryl was placed on each side of the fascia. Carmichael trocar was placed. High-flow pneumoperitoneum was obtained. An upper midline 5-mm port and two right upper quadr ant 5-mm ports were placed under direct camera visualization. The gallbladder was retracted from the gallbladder fossa. The peritoneum of the gallbladder was opened anteriorly and posteriorly. The criti cinthia view triangle was seen showing only the cystic duct and cystic artery branching from medial to la teral. There were no other branching structures. Two clips were placed proximally on the cystic duct and one laterally. It was cut using laparoscopic scissors. The cystic artery was taken in the same wa y. Electrocautery was then used to dissect the gallbladder out of the gallbladder fossa. The gallblad ericka was placed in an Endo catch bag and brought out through the Carmichael. There was no bleeding or bile in the liver bed. The cystic duct stump and cystic artery stump were intact without evidence of extr avasation or bleeding. All port sites were infiltrated using local anesthesia. All ports were removed under camera visualization. Pneumoperitoneum was let down. The Vicryl was used to close the fascial defect below the umbilicus. All incisions were irrigated and closed using 4-0 Monocryl and DermaBond. The patient was en route to Recovery in stable condition. All instrument counts, needle counts and l ap counts were correct.
[2017-12-15] MEDS: Pantoprazole 40 MG VIAL IVP SCH (11:00)
--- NOTE | 2017-12-15 12:10 | PRG ---
DATE OF SERVICE: 12/15/2017 Rosa Mcdowell had her gallbladder out today, she feels much better. She is still mildly icteric. PHYSICAL EXAMINATION: VITAL SIGNS: Blood pressures 151/79, pulse 71, temperature 98. HEENT: Mild icterus. LUNGS: Clear. HEART: Regular rate and rhythm. ABDOMEN: Appropriately tender after cholecystectomy. LABORATORY STUDIES: White count 3, hemoglobin 11.2, platelet count 252, bilirubin is down to 3.2, T and ALT are down to 43 and 49, alkaline phosphatase down to 417, bilirubin is 21. ASSESSMENT: 1. Biliary pancreatitis, resolved. 2. Cholecystitis status post cholecystectomy. 3. Choledocholithiasis resolved. At this time we will sign off. If I can be of further assistance in the patient's care, please do no t hesitate to contact me.
--- NOTE | 2017-12-15 14:18 | PDOC.PN ---
- Subjective Encounter Start Date: 12/15/17 Encounter Start Time: 13:15 Subjective: no sob, feels better - Objective Resuscitation Status: Resuscitation Status DNR:Do Not Resuscitate MAR Reviewed: Yes Vital Signs & Weight: Vital Signs (12 hours) Temp Pulse Resp BP Pulse Ox 12/15/17 05:09 98.2 F 71 18 151/79 H 96 Weight Weight 163 lb 2.273 oz I&O: 12/14/17 12/15/17 12/16/17 06:59 06:59 06:59 Intake Total 2880 2009 Balance 2880 2009 Result Diagrams: 12/15/17 04:06 12/15/17 04:06 Additional Labs: Accuchecks 12/15/17 12/15/17 12/15/17 13:13 05:46 00:56 POC Glucose 124 H 208 H 250 H 12/14/17 17:52 POC Glucose 123 H Phys Exam - Physical Examination HEENT: PERRLA, moist MMs Neck: no JVD, supple Respiratory: no wheezing, no rales Cardiovascular: RRR, no significant murmur Gastrointestinal: soft, non-tender, positive bowel sounds Musculoskeletal: no edema, pulses present Neurological: non-focal, moves all 4 limbs Psychiatric: A&O x 3 Dx/Plan (1) Gallstone pancreatitis Code(s): K85.10 - BILIARY ACUTE PANCREATITIS WITHOUT NECROSIS OR INFECTION Status: Acute (2) Choledocholithiasis Code(s): K80.50 - CALCULUS OF BILE DUCT W/O CHOLANGITIS OR CHOLECYST W/O OBST Status: Acute (3) HTN (hypertension) Code(s): I10 - ESSENTIAL (PRIMARY) HYPERTENSION Status: Chronic Qualifiers: Hypertension type: essential hypertension Qualified Code(s): I10 - Essential (primary) hypertension (4) Hypothyroidism Code(s): E03.9 - HYPOTHYROIDISM, UNSPECIFIED Status: Chronic Qualifiers: Hypothyroidism type: unspecified Qualified Code(s): E03.9 - Hypothyroidism , unspecified (5) Dementia Code(s): F03.90 - UNSPECIFIED DEMENTIA WITHOUT BEHAVIORAL DISTURBANCE Status: Chronic Qualifiers: Dementia type: unspecified type Dementia behavioral disturbance: without behavioral disturbance Qualified Code(s): F03.90 - Unspecified dementia without behavioral disturbance (6) Chronic anemia Code(s): D64.9 - ANEMIA, UNSPECIFIED Status: Chronic - Plan pt is s/p lap cholecystectomy and ercp -: Lft's are trending down -: t.bili is down to 3.2, lipase is normal -: hemostable -: likely dc in am to snf/home * . Review of Systems - Medications/Allergies Allergies/Adverse Reactions: Allergies Allergy/AdvReac Type Severity Reaction Status Date / Time No Known Drug Allergies Allergy Verified 10/09/16 18:04 Medications: Current Medications Acetaminophen (Tylenol) 650 mg PO Q4H PRN PRN Reason: Headache/Fever Or Mild Pain Hydrocodone Bitart/Acetaminophen ([place] 5/325) 1 tab PO Q4H PRN PRN Reason: Moderate Pain (4-6) Al Hydroxide/Mg Hydroxide (Maalox) 15 ml PO Q6H PRN PRN Reason: Dyspepsia Albuterol/Ipratropium (Duoneb) 3 ml NEB Q4H PRN PRN Reason: Wheezing Calcium Carbonate (Tums) 1,000 mg PO Q4H PRN PRN Reason: Dyspepsia Dextrose/Water (Dextrose 50%) 25 gm SLOW IVP PRN PRN PRN Reason: Hypoglycemia Docusate Sodium (Colace) 100 mg PO BID CARLOS Famotidine (Pepcid) 20 mg PO Q12HR CARLOS Famotidine (Pepcid) 20 mg SLOW IVP Q12HR CARLOS Glucagon (Glucagon) 1 mg IM PRN PRN PRN Reason: Hypoglycemia Hydralazine HCl (Apresoline) 10 mg SLOW IVP Q4H PRN PRN Reason: SBP > 170 or DBP > 100 Dextrose/Water (D5w) 1,000 mls @ 0 mls/hr IV .Q0M PRN; As Directed PRN Reason: Hypoglycemia Sodium Chloride (Normal Saline 0.9%) 1,000 mls @ 70 mls/hr IV .[id number] CARLOS Insulin Human Lispro (Humalog) 0 units SC .MILD SLIDING SCALE PRN PRN Reason: Mild Correctional Scale Morphine Sulfate (Morphine) 2 mg SLOW IVP Q2H PRN PRN Reason: Mild Pain (1-3) Morphine Sulfate (Morphine Sulfate) 4 mg SLOW IVP Q2H PRN PRN Reason: Moderate Pain (4-6) Ondansetron HCl (Zofran) 4 mg IVP Q6H PRN PRN Reason: Nausea/Vomiting Promethazine HCl (Phenergan) 12.5 mg IM Q4H PRN PRN Reason: Nausea/Vomiting
[2017-12-15] MEDS ORDERED: Famotidine/PF 20 mg/2ml Vial SLOW IVP SCH (21:00)
[2017-12-15] MEDS: Famotidine 20 MG TAB PO SCH (21:06)
[2017-12-15] MEDS: Docusate 100 MG CAP PO SCH (21:06)
[2017-12-16] MEDS: Sodium Chloride 0.9% 1,000 ML IV SCH (00:47)
[2017-12-16 05:56] LABS: #Monocytes 0.5 thou/uL (0.11-0.59); #Neutrophils 4.1 thou/uL (1.40-6.50); %Basophils 0.4 % (0.0-1.0); %Eosinophils 0.7 % (0.0-10.0); %Lymphocytes 18.5 % (21.0-51.0); %Monocytes 8.5 % (0.0-10.0); %Neutrophils 71.9 % (42.0-75.0); Hemoglobin 10.2 g/dL (12.0-16.0); Mean Corpuscular HGB CONC 32.6 g/dL (32.0-36.0); Mean Corpuscular Hemoglobin 29.4 pg (27.0-31.0); Mean Corpuscular Volume 90.4 fl (81.0-99.0); Mean Platelet Volume 6.2 fL (7.4-10.4); Platelet Count 243 thou/uL (130-400); RBC Distribution Width 12.7 % (11.5-14.5); Red Blood Cell (RBC) Count 3.47 mill/uL (4.20-5.40); White Blood Cell (WBC) Count 5.6 thou/uL (4.8-10.8)
[2017-12-16 06:13] LABS: ALT (SGPT) 52 U/L (8-55); AST (SGOT) 58 U/L (5-34); Alkaline Phosphatase 351 U/L (40-150); Anion Gap 8 mmol/L (10-20); BUN (Urea Nitrogen) 9 mg/dL (9.8-20.1); Bilirubin, Total 2.6 mg/dL (0.2-1.2); Calc. Creatinine Clearance 67 mL/min (70-130); Calcium 8.3 mg/dL (7.8-10.44); Carbon Dioxide 25 mmol/L (23-31); Chloride 103 mmol/L (98-107); Estimated GFR-MDRD 80; Globulin 2.4 g/dL (2.4-3.5); Glucose 94 mg/dL (83-110); Lipase 21 U/L (8-78); Potassium 3.4 mmol/L (3.5-5.1); Protein, Total 5.4 g/dL (6.0-8.3); Sodium 133 mmol/L (136-145)
[2017-12-16 08:19] VITALS: BP 119/67; TEMP 97.7
[2017-12-16] MEDS: Docusate 100 MG CAP PO SCH (08:42)
[2017-12-16] MEDS: Famotidine 20 MG TAB PO SCH (08:42)
--- NOTE | 2017-12-16 10:32 | PDOC.GSPN ---
Surgery Progress Note: Subj - Subjective Narrative: No complaints. Finally able to void last night Surgery Progress Note: Obj - Vital signs Vital signs: Vital Signs - Most Recent Temp Pulse Resp BP Pulse Ox 97.7 F 58 L 14 119/67 97 12/16/17 08:25 12/16/17 08:25 12/16/17 08:25 12/16/17 07:07 12/16/17 08:25 - Physical Exam General: no distress Abdomen: soft, non tender, nondistended Wound: healing well Surgery Progress Note: Results - Labs Result Diagrams: 12/16/17 05:18 12/16/17 05:18 Lab results: Laboratory Results - last 24 hr 12/16/17 12/16/17 12/16/17 05:18 05:18 06:04 WBC 5.6 RBC 3.47 L Hgb 10.2 L Hct 31.4 L MCV 90.4 MCH 29.4 MCHC 32.6 RDW 12.7 Plt Count 243 MPV 6.2 L Neutrophils % 71.9 Lymphocytes % 18.5 L Monocytes % 8.5 Eosinophils % 0.7 Basophils % 0.4 Neutrophils # 4.1 Lymphocytes # 1.0 L Monocytes # 0.5 Eosinophils # 0.0 Basophils # 0.0 Sodium 133 L Potassium 3.4 L Chloride 103 Carbon Dioxide 25 Anion Gap 8 L BUN 9 L Creatinine 0.69 Estimated GFR (MDRD) 80 Glucose 94 POC Glucose 88 Calcium 8.3 Total Bilirubin 2.6 H AST 58 H ALT 52 Alkaline Phosphatase 351 H Serum Total Protein 5.4 L Albumin 3.0 L Globulin 2.4 Albumin/Globulin Ratio 1.3 Lipase 21 Surgery Progress Note: A/P - Problem (1) Gallstone pancreatitis Current Visit: Yes Code(s): K85.10 - BILIARY ACUTE PANCREATITIS WITHOUT NECROSIS OR INFECTION Status: Acute Assessment and Plan: POD 1 lap haleigh, discharge today, f/u me 2 weeks (2) Choledocholithiasis Current Visit: Yes Code(s): K80.50 - CALCULUS OF BILE DUCT W/O CHOLANGITIS OR CHOLECYST W/O OBST Status: Acute
--- NOTE | 2017-12-16 19:43 | PDOC.PN ---
- Subjective Encounter Start Date: 12/16/17 Encounter Start Time: 07:25 Subjective: feels better, is amb and eating better -: no sob/abd pain/nausea - Objective Resuscitation Status: Resuscitation Status DNR:Do Not Resuscitate MAR Reviewed: Yes Vital Signs & Weight: Vital Signs (12 hours) Temp Pulse Resp Pulse Ox 12/16/17 08:25 97.7 F 58 L 14 97 Weight Weight 163 lb 2.273 oz I&O: 12/15/17 12/16/17 12/17/17 06:59 06:59 06:59 Intake Total 2009 2952.5 700 Output Total 1200 Balance 2009 1752.5 700 Result Diagrams: 12/16/17 05:18 12/16/17 05:18 Additional Labs: Accuchecks 12/16/17 12/15/17 06:04 20:29 POC Glucose 88 125 H Phys Exam - Physical Examination HEENT: PERRLA, moist MMs icterus++ Neck: no JVD, supple Respiratory: no wheezing, no rales Cardiovascular: RRR, no significant murmur Gastrointestinal: soft, non-tender, positive bowel sounds Musculoskeletal: no edema, pulses present Neurological: non-focal, moves all 4 limbs Dx/Plan (1) Gallstone pancreatitis Code(s): K85.10 - BILIARY ACUTE PANCREATITIS WITHOUT NECROSIS OR INFECTION Status: Acute (2) Choledocholithiasis Code(s): K80.50 - CALCULUS OF BILE DUCT W/O CHOLANGITIS OR CHOLECYST W/O OBST Status: Acute (3) HTN (hypertension) Code(s): I10 - ESSENTIAL (PRIMARY) HYPERTENSION Status: Chronic Qualifiers: Hypertension type: essential hypertension Qualified Code(s): I10 - Essential (primary) hypertension (4) Hypothyroidism Code(s): E03.9 - HYPOTHYROIDISM, UNSPECIFIED Status: Chronic Qualifiers: Hypothyroidism type: unspecified Qualified Code(s): E03.9 - Hypothyroidism , unspecified (5) Dementia Code(s): F03.90 - UNSPECIFIED DEMENTIA WITHOUT BEHAVIORAL DISTURBANCE Status: Chronic Qualifiers: Dementia type: unspecified type Dementia behavioral disturbance: without behavioral disturbance Qualified Code(s): F03.90 - Unspecified dementia without behavioral disturbance (6) Chronic anemia Code(s): D64.9 - ANEMIA, UNSPECIFIED Status: Chronic - Plan s/p both ercp sphincterotomy and lap haleigh -: hemostable -: lft's are trending to baseline slowly -: is amb and eating -: dc pt to snf, d/w son at bedside * .
--- NOTE | 2017-12-17 03:58 | DIS ---
DATE OF ADMISSION: 12/12/2017 DATE OF DISCHARGE: 12/16/2017 DISCHARGE DISPOSITION: To prison at [facility]. PRIMARY DISCHARGE DIAGNOSES: Acute biliary pancreatitis, choledocholithiasis, status post endoscopic retrograde cholangiopancreatography, status post laparoscopic cholecystectomy. SECONDARY DISCHARGE DIAGNOSES: Hypertension, hypothyroidism, dementia, chronic anemia. PROCEDURES DONE DURING HOSPITALIZATION: Patient has had abdominal ultrasound done on the day of admission, which showed intra and extrahepatic biliary dilatation of the common bile duct measuring up to 1.3 cm, abnormally thickened gallbladder wall and some pericholecystic fluid suggestive of cholecystitis, cholelithiasis, and gallbladder sludge. ERCP was done by Dr. Oh, which showed possible supra-papillary stenosis. No overt filling defect were done after sphincterotomy. She has had stone debris was noted on the balloon. There was spontaneous drainage of contrast seen during the procedure. Patient has had laparoscopic cholecystectomy done by Dr. Sebastian on 12/15/2017. Blood cultures x2 no growth. Influenza A and B antigens were negative. Discharge H& H 10 and 31, platelet count 243, MCV is 90. INR was 1.1. Discharge alkaline phosphatase is 351, AST 58, ALT 52, total bilirubin on the day of discharge 2.6. Albumin was 21. Admitting lipase levels were 1192, total bilirubin on the day of admission 8.7. AST, ALT on the day of admission is 85 and 86, alkaline phosphatase was 610 on the day of admission. DISCHARGE MEDICATIONS: Norvasc 10 mg p.o. daily, aspirin 81 mg p.o. daily, calcium with Vitamin D 1 tab twice daily, Cymbalta 30 mg p.o. daily, levothyroxine 25 mcg p.o. daily, losartan with hydrochlorothiazide 100/25 mg p.o. daily, Protonix 1 tab daily, MiraLax 17 grams daily, potassium chloride 20 mEq p.o. daily, Ultram p.r.n. for pain. ALLERGIES: No known drug allergies. DISCHARGE PLAN: Patient to follow up with Dr. Sebastian in 2 weeks. She also needs follow up with her primary care physician in 1 week. INPATIENT CONSULTS: Dr. Oh for Gastroenterology, Dr. Sebastian for General Surgery. BRIEF COURSE DURING HOSPITALIZATION: Patient initially got admitted on the after she was sent from [facility] in [place] for poor appetite, muscle aches, low-grade fever, and yellowish discoloration. The patient was found to have had gallstone pancreatitis. She was evaluated by Dr. Sebastian and Dr. Oh. Patient was asymptomatic towards the same. She was gently hydrated and was closely monitored on med/surg floor. Her liver function tests and lipase started to decline towards baseline gradually. She has had ERCP done with sphincterotomy. Subsequently, patient has had laparoscopic cholecystectomy on the first by Dr. Sebastian. Her stay was uneventful. Prior to discharge, she is ambulating and will be shortly discharged back to [facility] in [place]. Please see a [id number] documentation on [facility] for the day of discharge. A total of 35 minutes was spent on discharge plan. [facility]ENTERLucinda
== END 2017-12-16 11:11 | DRG 417 ==
LOC: ERS 14:12 → SURG A 18:21
PROVIDERS: ADMIT Surgery; ATTEND Surgery
PROC: 0F798ZZ Dilation of Common Bile Duct, Via Natural or Artificial Opening Endoscopic (ICD-10-PCS; 2017-12-14)
PROC: 0FT44ZZ Resection of Gallbladder, Percutaneous Endoscopic Approach (ICD-10-PCS; principal; 2017-12-15)
DX: K80.60 Calculus of gallbladder and bile duct with cholecystitis, unspecified, without obstruction (principal); K85.10 Biliary acute pancreatitis without necrosis or infection; F03.90 Unspecified dementia, unspecified severity, without behavioral disturbance, psychotic disturbance, mood disturbance, and anxiety; I10 Essential (primary) hypertension; E03.9 Hypothyroidism, unspecified; Z79.82 Long term (current) use of aspirin; Z79.899 Other long term (current) drug therapy
CPT/HCPCS: 36415; 36416; 74330; 76705; 80053; 81003; 81015; 83605; 83690; 85025; 85610; 87040; 87086; 88304; 90471; 90682; 96365; C9113; G0008; G8978-GP-CJ; G8979-GP-CJ; G8980-GP-CJ; J0670; J1100; J1170; J1885; J2001; J2405; J2543; J2704; J3010; J7050; Q2036; Q9961